=== PATIENT | female | born 1990 | race African-American/Black ===

== ENCOUNTER 2019-06-26 15:45 | Emergency (ER) | payer MEDICAID ==
[~2019-06-26] VITALS: Ht 157.5 cm; Wt 64.0 kg
[2019-06-26 15:48] VITALS: BP 132/90
[2019-06-26] MEDS ORDERED: ONDANSETRON 4MG ODT PO ONE (16:30)
[2019-06-26] MEDS ORDERED: ACETAMINOPHEN 650MG/20.3ML UDC PO ONE (16:30)
== END 2019-06-26 20:59 | disposition left against medical advice (07) ==
LOC: ER 15:45
DX: S09.8XXA Other specified injuries of head, initial encounter (principal); Y04.0XXA Assault by unarmed brawl or fight, initial encounter; Y93.89 Activity, other specified; Y92.89 Other specified places as the place of occurrence of the external cause; Y99.8 Other external cause status; I10 Essential (primary) hypertension
CPT/HCPCS: 70450; 99284; Q0162

== ENCOUNTER 2020-05-27 13:55 | Emergency (ER) | payer MEDICAID, OTHER ==
[~2020-05-27] VITALS: Ht 157.5 cm; Wt 49.0 kg
[2020-05-27 17:54] LABS: BASOPHILS % 1.2 % (0.0-2.0); HEMATOCRIT. 29.4 % (36.0-48.0); HEMOGLOBIN. 8.9 g/dL (12.0-16.0); LYMPHOCYTES % 45.8 % (20.0-50.0); MEAN CORPUSCULAR HEMOGLOBIN 19.3 pg (28.0-32.0); MEAN CORPUSCULAR VOLUME 63.8 fL (81.0-99.0); MEAN PLATELET VOLUME 7.5 fl (7.4-10.4); MONOCYTES % 6.5 % (2.0-8.0); NEUTROPHILS % 37.5 % (40.0-76.0); PLATELET 579 x1000/uL (130-400); RED BLOOD CELL COUNT 4.61 mill/uL (4.2-5.4); RED CELL DISTRIBUTION WIDTH 23.5 % (11.6-14.6)
[2020-05-27 18:01] LABS: CHLORIDE 107 mEq/L (98-107)
[2020-05-27 18:15] LABS: PLATELET ESTIMATE MARKEDLY INCREASED
[2020-05-27] MEDS ORDERED: ACETAMINOPHEN 325MG TABLET PO STA (18:59)
[2020-05-27 19:24] VITALS: BP 117/78
== END 2020-05-27 19:28 | disposition home or self-care (01) ==
LOC: ER 13:55
DX: D50.9 Iron deficiency anemia, unspecified (principal); D47.3 Essential (hemorrhagic) thrombocythemia; R51.9 Headache, unspecified
CPT/HCPCS: 36415; 80053; 85025; 99285

== ENCOUNTER 2020-05-27 20:08 | Emergency (ER) | payer OTHER ==
[~2020-05-27] VITALS: Ht 160 cm; Wt 47.2 kg
[2020-05-27] MEDS ORDERED: ACETAMINOPHEN 325MG TABLET PO ONE (22:15)
[2020-05-27] MEDS ORDERED: IBUPROFEN 400MG TABLET PO ONE (22:30)
[2020-05-27 22:34] VITALS: BP 125/83
== END 2020-05-27 23:33 | disposition home or self-care (01) ==
LOC: ER 20:08
DX: R51.9 Headache, unspecified (principal)
CPT/HCPCS: 99282